=== PATIENT | male | born 1980 | race Caucasian/White ===

== ENCOUNTER 2017-11-09 17:57 | Emergency (ER) | payer MEDICAID ==
[~2017-11-09] VITALS: Ht 157.5 cm; Wt 48.6 kg
[2017-11-09 17:58] VITALS: BP 118/76
[2017-11-09] MEDS ORDERED: ONDANSETRON 4 MG ODT PO ONE (18:10)
[2017-11-09 18:58] LABS: APPEARANCE,URINE CLEAR (CLEAR); BILIRUBIN,URINE 1+ (NEGATIVE); BLOOD, URINE NEGATIVE (NEGATIVE); COLOR,URINE YELLOW (YELLOW); LEUKOCYTE ESTERASE ,URINE NEGATIVE (NEGATIVE); NITRITE, URINE NEGATIVE (NEGATIVE); PH,URINE 5.5 (5.0-9.0); UGLUCOSE NEGATIVE (NEGATIVE)
[2017-11-09 19:04] LABS: ANION GAP 11.1 (8-16); CARBON DIOXIDE 32.2 mmol/L (21-32); CREATININE 1.1 mg/dL (0.7-1.3); POTASSIUM 4.3 mmol/L (3.5-5.1)
[2017-11-09 19:09] LABS: ALBUMIN 4.6 g/dL (3.4-5.0); TOTAL BILIRUBIN 0.7 mg/dL (0.0-1.0)
[2017-11-09 19:26] LABS: BASOPHILS # (AUTO) 0.4 K/uL (0.00-0.22); HEMATOCRIT 44.7 % (36-52); HEMOGLOBIN 14.9 g/dL (12.0-18.0); LYMPHOCYTES # (AUTO) 2.3 K/uL (2.0-11.5); MEAN CORPUSCULAR HEMOGLOBIN 30 pg (27-31); MEAN CORPUSCULAR HGB CONC 33 g/dL (33-37); MEAN CORPUSCULAR VOLUME 89 fL (80-94); MONOCYTES # (AUTO) 0.5 K/uL (0.8-1.0); NEUTROPHILS # (AUTO) 3.4 K/uL (1.8-7.7); PLATELET COUNT (AUTO) 181 K/uL (140-450); RED BLOOD CELL COUNT(AUTO) 5.02 MIL/uL (4.20-6.10); RED CELL DISTRIBUTION WIDTH 11.9 % (11.6-13.7); WHITE BLOOD COUNT (AUTO) 6.6 K/uL (4.8-10.8)
[2017-11-09 20:20] VITALS: BP 118/76
== END 2017-11-09 20:20 | disposition home or self-care (01) ==
LOC: MED 17:57
DX: K59.00 Constipation, unspecified (principal)
CPT/HCPCS: 36415; 74176; 80053; 81003; 83690; 85025; 99285; S0119

== ENCOUNTER 2018-03-06 06:00 | Emergency (ER) | payer MEDICAID ==
[~2018-03-06] VITALS: Ht 157.5 cm; Wt 48.6 kg
[2018-03-06 06:09] VITALS: BP 115/69
[2018-03-06] MEDS ORDERED: KETOROLAC 60 MG/2 ML VIAL IM ONE (06:25)
[2018-03-06] MEDS ORDERED: ONDANSETRON 4 MG ODT PO ONE (06:25)
[2018-03-06 06:45] VITALS: BP 124/68
== END 2018-03-06 06:45 | disposition home or self-care (01) ==
LOC: MED 06:00
DX: R10.32 Left lower quadrant pain (principal); R11.0 Nausea; R19.7 Diarrhea, unspecified; Z88.0 Allergy status to penicillin
CPT/HCPCS: 96372; 99283; J1885; S0119

== ENCOUNTER 2018-03-10 09:09 | Emergency (ER) | payer MEDICAID ==
[~2018-03-10] VITALS: Ht 157.5 cm; Wt 49.4 kg
[2018-03-10 09:17] VITALS: BP 138/76
--- NOTE | 2018-03-10 09:21 | NUR ---
pt ambulates to bed 11 at this time with steady gait.
--- NOTE | 2018-03-10 09:25 | NUR ---
37 yo m bib family with c/o suprapubic pain/lower abdominal pain x 1 hour with nausea. Pt reports that the pain began this morning, but the nausea began last night. Patient denies v/d or dysuria at this time. Pt was here on Sunday w/ dx of gastritis. aaox4. gcs 15. cms intact. rr even and unlabored. lungs bilaterally clear. abd soft, but tender to palpation. er md dias notified. pt needs met. safety precautions in place. will continue to monitor.
--- NOTE | 2018-03-10 09:25 | NUR ---
Note undone in EDM - 03/10/18 at 0936 by [email or web address] 37 yo m bib family with c/o suprapubic pain/lower abdominal pain x 1 hour with nausea. Pt reports that the pain began this morning, but the nausea began last night. Patient denies v/d or dysuria at this time. Pt was here on Sunday w/ dx of gastritis. aaox4. gcs 15. cms intact. rr even and unlabored. lungs bilaterally clear. abd soft, non-tender. er md dias notified. pt needs met. safety precautions in place. will continue to monitor.
[2018-03-10] MEDS ORDERED: KETOROLAC 30 MG/ML VIAL IVP ONE (09:45)
[2018-03-10] MEDS ORDERED: NACL 0.9% 1,000 ML IV SCH (09:45)
[2018-03-10] MEDS ORDERED: MORPHINE SULFATE 2 MG/ML SYR IVP ONE (09:45)
[2018-03-10] MEDS ORDERED: METOCLOPRAMIDE 10 MG/2 ML INJ VIAL IVP ONE (09:45)
[2018-03-10] MEDS ORDERED: GLYCOPYRROLATE 0.2 MG/ML VIAL IV ONE (09:45)
[2018-03-10 10:05] LABS: BASOPHILS % (AUTO) 0.3 % (0.0-2.0); EOSINOPHILS % (AUTO) 0.9 % (0.0-4.0); HEMATOCRIT 41.1 % (36-52); HEMOGLOBIN 14.4 g/dL (12.0-18.0); LYMPHOCYTES # (AUTO) 1.6 K/uL (2.0-11.5); LYMPHOCYTES % (AUTO) 30.8 % (20.5-51.1); MEAN CORPUSCULAR HEMOGLOBIN 31 pg (27-31); MEAN CORPUSCULAR HGB CONC 35 g/dL (33-37); MEAN CORPUSCULAR VOLUME 87.2 fL (80-94); MONOCYTES # (AUTO) 0.3 K/uL (0.8-1.0); MONOCYTES % (AUTO) 5.9 % (1.7-9.3); NEUTROPHILS # (AUTO) 3.2 K/uL (1.8-7.7); NEUTROPHILS % (AUTO) 62.1 % (42.2-75.2); PLATELET COUNT (AUTO) 159 K/uL (140-450); RED BLOOD CELL COUNT(AUTO) 4.71 MIL/uL (4.20-6.10); RED CELL DISTRIBUTION WIDTH 12.9 % (11.6-13.7); WHITE BLOOD COUNT (AUTO) 5.2 K/uL (4.8-10.8)
[2018-03-10 10:07] LABS: APPEARANCE,URINE CLEAR (CLEAR); BILIRUBIN,URINE NEGATIVE (NEGATIVE); BLOOD, URINE NEGATIVE (NEGATIVE); COLOR,URINE YELLOW (YELLOW); LEUKOCYTE ESTERASE ,URINE NEGATIVE (NEGATIVE); NITRITE, URINE NEGATIVE (NEGATIVE); UGLUCOSE NEGATIVE (NEGATIVE)
[2018-03-10 10:14] LABS: ANION GAP 10.3 (8-16); CHLORIDE 105 mmol/L (98-107); CREATININE 1.5 mg/dL (0.7-1.3); GFR ARICAN-AMERICAN 68 mL/min (>90); GLUCOSE 89 mg/dL (74-106); POTASSIUM 4.3 mmol/L (3.5-5.1); SODIUM SERUM 141 mmol/L (136-145); UREA NITROGEN, BLOOD 19 mg/dL (7-18)
[2018-03-10] MEDS ORDERED: NACL 0.9% 1,000 ML IV ONE (10:20)
[2018-03-10 10:22] LABS: ALBUMIN 4.2 g/dL (3.4-5.0); AMYLASE 54 U/L (25-115); ASPARTATE AMINOTRANSFERASE 22 U/L (15-37); LIPASE 110 U/L (73-393); TOTAL BILIRUBIN 0.4 mg/dL (0.0-1.0)
[2018-03-10] MEDS ORDERED: SODIUM BICARBONATE 8.4% PFS 50 MEQ/50 ML SYR IVP ONE (10:25)
--- NOTE | 2018-03-10 10:30 | NUR ---
pt to ct scan at this time via w/c.
[2018-03-10 10:36] LABS: BARBITURATE, URINE NEG. ng/ml (NEG <=200); BENZODIAZEPINE, URINE NEG. ng/mL (NEG <=200); CANNABINOID, URINE NEG. ng/mL (NEG <=50); COCAINE, URINE NEG. ng/mL (NEG <=300); OPIATE, URINE NEG. ng/mL (NEG <=2000); PHENCYCLIDINE SCREEN,URINE NEG. ng/mL (NEG <=25)
[2018-03-10 11:31] VITALS: BP 131/87
--- NOTE | 2018-03-10 11:31 | NUR ---
Patient discharged with v/s stable. Written and verbal after care instructions given and explained. Patient alert, oriented and verbalized understanding of instructions. Ambulatory with steady gait. All questions addressed prior to discharge. ID band removed. Patient advised to follow up with PMD. Rx of Lactulose given. Patient educated on indication of medication including possible reaction and side effects. Opportunity to ask questions provided and answered.
== END 2018-03-10 11:31 | disposition home or self-care (01) ==
LOC: MED 09:09
DX: K59.00 Constipation, unspecified (principal); E86.0 Dehydration; R19.7 Diarrhea, unspecified; R11.0 Nausea; Z88.0 Allergy status to penicillin
CPT/HCPCS: 36415; 80053; 80305; 81003; 82150; 83690; 85025; 96361; 96374; 96375; 99284; G0482; J1885; J2270; J2765; J3490; J7030